=== PATIENT | male | born 1955 | race Caucasian/White ===

== ENCOUNTER 2017-08-03 18:01 | Inpatient (IN) | payer OTHER ==
[~2017-08-03] VITALS: Ht 175.3 cm; Wt 72.6 kg
--- NOTE | 2017-08-03 18:05 | NUR ---
BB FAMILY FOR CHEST PAIN AND SOB X 2 DAYS. PATIENT STATING PRESSURE LIKE PAIN ON CHEST, NONRADIATING. BREATHING EVEN AND UNLABORED. PATIENTS VITALS STABLE. NO DISTRESS NOTED. SKIN IS WARM AND DRY. SAFETY AND COMFORT MEASURES IN PLACE. AWAITING MD ORDERS.
[2017-08-03] MEDS ORDERED: ASPIRIN 325 MG TABLET ONE (18:12)
[2017-08-03] MEDS ORDERED: NITROGLYCERIN 0.4 MG/TAB BOTTLE ONE (18:12)
--- NOTE | 2017-08-03 18:12 | NUR ---
NEW IV STARTED ON RAC, 20 G. BLOOD DRAWN AND SENT TO LAB.
[2017-08-03 18:22] LABS: BASOPHILS % (AUTO) 0.4 % (0.0-2.0); EOSINOPHILS # (AUTO) 0.1 /CMM (0.0-0.7); EOSINOPHILS % (AUTO) 1.1 % (0.0-6.0); HEMATOCRIT 46 % (39-51); HEMOGLOBIN 16.3 g/dL (13.5-17.5); LYMPHOCYTES % (AUTO) 18.1 % (20.0-44.0); MEAN CORPUSCULAR HEMOGLOBIN 32 PG (26.0-33.0); MEAN CORPUSCULAR HGB CONC 35 g/dl (31.0-36.0); MEAN CORPUSCULAR VOLUME 91 fL (80-96); MONOCYTES # (AUTO) 0.6 /CMM (0.1-1.30); MONOCYTES % (AUTO) 5.5 % (2.0-12.0); NEUTROPHILS # (AUTO) 8.2 /CMM (1.8-8.9); NEUTROPHILS % (AUTO) 74.9 % (43.0-81.0); PLATELET COUNT (AUTO) 132 /CMM (150-450); RDW COEFFICIENT OF VARIATION 12.4 (11.5-15.0); RED BLOOD CELL COUNT(AUTO) 5.04 MIL/uL (4.5-6.0); WHITE BLOOD COUNT (AUTO) 10.9 K/uL (4.3-11.0)
[2017-08-03] MEDS ORDERED: NITROGLYCERIN PACKET 1 GM PACKET ONE (18:29)
--- NOTE | 2017-08-03 18:29 | NUR ---
DOLLYMAN AT BEDSIDE.
[2017-08-03] MEDS ORDERED: ASPIRIN 325 MG TABLET PO ONE (18:30)
[2017-08-03] MEDS ORDERED: NITROGLYCERIN PACKET 1 GM PACKET TOP ONE (18:30)
[2017-08-03] MEDS ORDERED: NITROGLYCERIN 0.4 MG/TAB BOTTLE SL ONE (18:30)
[2017-08-03 18:31] LABS: CALCIUM, SERUM 8.9 mg/dL (8.5-10.1); CARBON DIOXIDE 29 mmol/L (21-32); CHLORIDE 103 mmol/L (98-107); GLUCOSE 109 mg/dL (74-106); POTASSIUM 3.2 mmol/L (3.5-5.1); SODIUM SERUM 141 mmol/L (136-145); UREA NITROGEN, BLOOD 26 mg/dL (7-18)
[2017-08-03 18:35] LABS: INR 0.97 (0.87-1.13)
[2017-08-03 18:41] LABS: TROPONIN I < 0.017 ng/mL (0.00-0.056)
[2017-08-03] MEDS ORDERED: AMLO5TAB2 PO (18:41)
[2017-08-03] MEDS ORDERED: ZOLP10TA6 PO (18:41)
[2017-08-03] MEDS ORDERED: CLON0.2T PO (18:41)
[2017-08-03] MEDS ORDERED: POTASSIUM CHLORIDE 20 MEQ TAB.PRT.SR PO ONE ×3 (19:30→21:00)
--- NOTE | 2017-08-03 20:06 | NUR ---
MD CLIFTON OK FOR TRANSFER TO [facility]. SPOKE WITH MD LOUIE
--- NOTE | 2017-08-03 20:06 | NUR ---
REPORT GIVEN TO [facility] NURSE
--- NOTE | 2017-08-03 20:30 | NUR ---
ATHLETICS DIRECTOR NOTE RECEIVED PATIENT FROM ER ON [facility] IN STABLE CONDITION. PATIENT AWAKE AND ALERT X4. WOLOF SPEAKING. DENIES ANY CHEST PAIN AT THIS TIME. SKIN INTACT, WITH NO BREAKDOWN OR BRUISING NOTED. IV SITE TO RAC INTACT. NO FLUIDS ORDERED AT THIS TIME. ORIENTED PATIENT TO ROOM AND TO UNIT. ALL BELONGINGS CHECKED AND ACCOUNTED FOR. BED LOCKED AND IN LOWEST POSITION. SIDE RAILS UP, CALL LIGHT WITHIN REACH. WILL CONTINUE TO MONITOR.
[2017-08-03 21:00] VITALS: BP 141/83
[2017-08-03] MEDS ORDERED: ZOLPIDEM TARTRATE 10 MG TABLET PO PRN (21:00)
[2017-08-03] MEDS ORDERED: ACETAMINOPHEN 325 MG TABLET PO PRN (21:00)
[2017-08-03] MEDS ORDERED: ONDANSETRON HCL/PF 4 MG/2 ML VIAL IVP PRN (21:00)
[2017-08-03] MEDS ORDERED: NITROGLYCERIN 0.4 MG/TAB BOTTLE SL PRN (21:00)
[2017-08-03] MEDS ORDERED: MORPHINE SULFATE INJ 2 MG/ML DISP.SYRIN IV PRN ×2 (21:00)
[2017-08-03] MEDS ORDERED: SIMVASTATIN 20 MG TABLET ONE (21:26)
[2017-08-03 21:30] VITALS: BP 141/83
[2017-08-03] MEDS ORDERED: ZOLPIDEM TARTRATE 10 MG TABLET ONE (21:57)
[2017-08-03] MEDS ORDERED: SIMVASTATIN 20 MG TABLET PO SCH (22:00)
[2017-08-04] VITALS: BP 139/79
[2017-08-04 04:00] VITALS: BP 133/62
--- NOTE | 2017-08-04 06:38 | NUR ---
BINDER OPERATOR NOTE PATIENT STABLE. ALL NEEDS MET AND ATTENDED TO. TELE MONITOR IN PLACE. READING SB 50. WILL ENDORSE TO DAY SHIFT FOR SEAN.
--- NOTE | 2017-08-04 07:20 | NUR ---
RN OPEN NOTES RECEIVED REPORT FROM ALTERATION WORKER NURSE. PATIENT IS IN BED. ALERT AND ORIENTED TO NAME, PLACE AND TIME. BELARUSIAN SPEAKING. NO SIGNS AND SYMPTOMS OF DISTRESS. BED IN LOW POSITION, LOCKED AND TWO SIDE RAILS ARE UP. CALL LIGHT WITHIN REACH FOR SAFETY. WILL CONTINUE TO MONITOR AND ASSESS PATIENT.
[2017-08-04 07:24] LABS: BASOPHILS % (AUTO) 0.4 % (0.0-2.0); EOSINOPHILS # (AUTO) 0.1 /CMM (0.0-0.7); EOSINOPHILS % (AUTO) 1.4 % (0.0-6.0); HEMATOCRIT 41 % (39-51); HEMOGLOBIN 14.5 g/dL (13.5-17.5); LYMPHOCYTES # (AUTO) 2.1 /CMM (0.8-4.8); LYMPHOCYTES % (AUTO) 23.2 % (20.0-44.0); MEAN CORPUSCULAR HEMOGLOBIN 32 PG (26.0-33.0); MEAN CORPUSCULAR HGB CONC 35 g/dl (31.0-36.0); MEAN CORPUSCULAR VOLUME 92 fL (80-96); MONOCYTES # (AUTO) 0.6 /CMM (0.1-1.30); MONOCYTES % (AUTO) 7.2 % (2.0-12.0); NEUTROPHILS # (AUTO) 6.1 /CMM (1.8-8.9); NEUTROPHILS % (AUTO) 67.8 % (43.0-81.0); PLATELET COUNT (AUTO) 118 /CMM (150-450); RDW COEFFICIENT OF VARIATION 13.5 (11.5-15.0); RED BLOOD CELL COUNT(AUTO) 4.49 MIL/uL (4.5-6.0)
[2017-08-04 07:32] LABS: INR 1.01 (0.87-1.13)
[2017-08-04 07:42] LABS: CALCIUM, SERUM 8.7 mg/dL (8.5-10.1); CREATININE 0.8 mg/dL (0.6-1.3); MAGNESIUM 1.9 mg/dL (1.8-2.4); PHOSPHORUS 3.6 mg/dL (2.5-4.9); POTASSIUM 3.3 mmol/L (3.5-5.1)
[2017-08-04 08:00] VITALS: BP 146/77
[2017-08-04] MEDS ORDERED: AMLODIPINE BESYLATE 5 MG TABLET PO SCH (09:00)
[2017-08-04] MEDS ORDERED: METOPROLOL TARTRATE 25 MG TABLET PO SCH (09:00)
[2017-08-04] MEDS ORDERED: ASPIRIN 81 MG TAB.CHEW PO SCH (09:00)
[2017-08-04] MEDS ORDERED: CLONIDINE HCL 0.1 MG TABLET PO SCH (09:00)
[2017-08-04] MEDS ORDERED: VALSARTAN 80 MG TABLET PO SCH (09:30)
[2017-08-04] MEDS: POTASSIUM CHLORIDE 20 MEQ TAB.PRT.SR PO SCH ×2 (09:44→10:57)
[2017-08-04 09:46] VITALS: BP 141/77
[2017-08-04 09:56] LABS: TROPONIN I < 0.017 ng/mL (0.00-0.056)
[2017-08-04 10:01] LABS: THYROID STIMULATING HORMONE 3.016 uIU/mL (0.358-3.74)
[2017-08-04] MEDS ORDERED: hydrALAZINE HCL 25 MG TABLET PO PRN (11:30)
[2017-08-04] MEDS ORDERED: FAMOTIDINE (20 MG) 20 MG TABLET PO SCH (11:30)
[2017-08-04] MEDS ORDERED: MAG HYDROX/AL HYDROX/SIMETH 30 ML UDC PO PRN (11:30)
[2017-08-04] MEDS ORDERED: ALPRAZOLAM 0.25 MG TABLET PO PRN (11:30)
[2017-08-04] MEDS ORDERED: HYDROCODONE/APAP 5/325MG 1 EACH TABLET PO PRN (11:30)
[2017-08-04] MEDS ORDERED: CALCIUM CARBONATE 500 MG TAB.CHEW PO SCH (11:30)
[2017-08-04] MEDS ORDERED: POTASSIUM CHLORIDE 20 MEQ TAB.PRT.SR PO SCH (12:00)
--- NOTE | 2017-08-04 14:58 | NUR ---
STOCK TRANSFER CLERK / AMA NOTES PATIENT IS LEAVING AGAINST MEDICAL ADVICE. PATIENT IS ALERT AND ORIENTED X3. SON IS AT BEDSIDE. ABLE TO COMPREHEND AND VERBALIZE UNDERSTANDING. ALL RISKS EXPLAINED TO PATIENT. PATIENT ADVISED TO FOLLOW UP WITH PCP AND SAND SYSTEM OPERATOR. ALL PERSONAL BELONGING WITH PATIENT AT TIME OF DISCHARGE. SKIN IS INTACT, NO NEED FOR PICTURES. IV SITE REMOVED. ID BAND REMOVED. SON PICKED UP PATIENT HOME VIA A PRIVATE CAR.
[2017-08-05] MEDS ORDERED: REGADENOSON 0.4 MG/5 ML DISP.SYRIN IVP ONE (08:00)
== END 2017-08-04 15:50 | disposition left against medical advice (07) | DRG 243 ==
LOC: ER 18:03 → TELE 19:44 → MED 08-04 11:43
PROVIDERS: ADMIT Internal Medicine; ATTEND Internal Medicine
DX: K21.9 Gastro-esophageal reflux disease without esophagitis (principal); I10 Essential (primary) hypertension; E78.5 Hyperlipidemia, unspecified; E87.6 Hypokalemia; F17.210 Nicotine dependence, cigarettes, uncomplicated; R79.89 Other specified abnormal findings of blood chemistry; J40 Bronchitis, not specified as acute or chronic; Z86.19 Personal history of other infectious and parasitic diseases
CPT/HCPCS: 36415; 71045-TC; 80048-TC; 80061-TC; 82150-TC; 82306; 83690-TC; 83735-TC; 84100-TC; 84439-TC; 84443-TC; 84484-TC; 85025-TC; 85610-TC; 85730-TC; 87081-TC; 93307-TC; A4606; Z7610